=== PATIENT | female | born 1935 | race Caucasian/White ===

== ENCOUNTER → 2017-02-27 | Outpatient (CLI) | payer MEDICARE ==
[~2017-02-27] MED LIST: CIPRO500 MG PO; HYDROCODONE BIT1 T11 PO
== END | disposition home or self-care (01) ==
LOC: ORTHO 02:14
DX: M17.12 Unilateral primary osteoarthritis, left knee (principal)

== ENCOUNTER → 2019-03-10 | Outpatient (CLI) | payer MEDICARE | END | disposition home or self-care (01) | LOC: ORTHO 01:13 | DX: M19.031 Primary osteoarthritis, right wrist (principal) ==

== ENCOUNTER → 2020-02-24 | Outpatient (CLI) | payer MEDICARE | END | disposition home or self-care (01) | LOC: ORTHO 03:18 | PROVIDERS: ATTEND Psychiatry & Neurology Psychiatry | DX: M17.0 Bilateral primary osteoarthritis of knee (principal) ==

== ENCOUNTER → 2020-04-01 | Outpatient (CLI) | payer MEDICARE | END | disposition home or self-care (01) | LOC: RAD 15:26 | PROVIDERS: ATTEND Orthopaedic Surgery | DX: M25.551 Pain in right hip (principal) ==

== ENCOUNTER → 2022-01-24 | Outpatient (CLI) | payer MEDICARE | END | disposition home or self-care (01) | LOC: ORTHO 02:09 | PROVIDERS: ATTEND Orthopaedic Surgery | DX: S83.192A Other subluxation of left knee, initial encounter (principal); X58.XXXA Exposure to other specified factors, initial encounter; M17.12 Unilateral primary osteoarthritis, left knee; Y93.89 Activity, other specified; Y92.89 Other specified places as the place of occurrence of the external cause; Y99.8 Other external cause status ==